=== PATIENT | female | born 1960 | race Caucasian/White ===

== ENCOUNTER 2021-12-01 18:00 | Emergency (ER) | payer MEDICARE, OTHER ==
[2021-12-01 20:41] LABS: HEMOGLOBIN 15.2 gm/dl (12.3-15.3); RED BLOOD COUNT 5.11 M/UL (4.00-5.10); WHITE BLOOD COUNT 4.2 K/UL (4.5-11.0)
[2021-12-01 20:50] LABS: BUN/CREATININE RATIO 15 (0-10)
== END 2021-12-01 23:00 | disposition left against medical advice (07) ==
LOC: ER1 18:00
PROVIDERS: Physician Assistant
DX: R89.9 Unspecified abnormal finding in specimens from other organs, systems and tissues (principal); I10 Essential (primary) hypertension; I25.10 Atherosclerotic heart disease of native coronary artery without angina pectoris; E11.9 Type 2 diabetes mellitus without complications; E78.5 Hyperlipidemia, unspecified
CPT/HCPCS: 0240U; 80053; 81001; 82009; 83605; 83690; 83735; 85025; 85652; 86140; 87086; 99283